=== PATIENT | female | born 1970 | race American Indian/Alaskan Native ===

== ENCOUNTER 2021-09-30 02:05 | Emergency (ER) | payer SELFPAY ==
[2021-09-30] MEDS ORDERED: LACTATED RINGERS 1,000 ML IV ONE (02:46)
--- NOTE | 2021-09-30 02:46 | Event Note ---
Date: 09/30/21 The patient was evaluated in the emergency department for symptoms described in the history of present illness. He/she was evaluated in the context of the global COVID-19 pandemic, which necessitated consideration that the patient might be at risk for infection with the virus that causes COVID-19. Institutional protocols and algorithms that pertain to the evaluation of patients at risk for COVID-19 are in a state of rapid change based on information released by regulatory bodies including the CDC and federal and state organizations. These policies and algorithms were followed during the patient's care in the emergency department. Please note that these policies, procedures and recommendations changed on a rapid basis. EMS documentation not available at time of chart dictation Verbal report received from emergency medical services Medical screening examination note: 51-year-old female presenting to the department today with complaint of muscle cramps after dancing in a hot dance martin. EMS reports soft blood pressure in the field, which improved with lactated Ringer's. Patient currently awake and alert, moving 4 extremities, breathing spontaneously protecting airway, and in no acute distress. Placed patient in room, obtain appropriate laboratory studies, place patient on monitor, obtain EKG. Continue fluid therapy. Detailed history and physical to be performed by oncoming provider.
[2021-09-30 03:15] VITALS: BP 116/62
[2021-09-30 04:24] LABS: Basophils % (Auto) 0.1 % (0.0-1.8); Hematocrit 36.1 % (30.3-42.9); Hemoglobin 11.8 gm/dl (10.1-14.3); Lymphocytes # (Auto) 1.1 K/mm3 (1.2-5.4); Lymphocytes % (Auto) 12.2 % (13.4-35.0); Mean Corpuscular HGB Conc 33 % (30-34); Mean Corpuscular Volume 80 fl (79-97); Monocytes # (Auto) 0.4 K/mm3 (0.0-0.8); Monocytes % (Auto) 4.8 % (0.0-7.3); Platelet Count 216 K/mm3 (140-440); Red Blood Count 4.49 M/mm3 (3.65-5.03); Red Cell Distribution Width 17.7 % (13.2-15.2)
[2021-09-30 04:29] LABS: Alanine Aminotransferase 23 units/L (7-56); Albumin 4.1 g/dL (3.9-5); BUN/Creatinine Ratio 33; Blood Urea Nitrogen 30 mg/dL (7-17); Calcium 9.6 mg/dL (8.4-10.2); Hemolysis Index 7
[2021-09-30] MEDS ORDERED: KETOROLAC 30 MG/1 ML INJ IV ONE (05:05)
--- NOTE | 2021-09-30 05:10 | Emergency Department Report ---
ED General Adult HPI - General Chief complaint: Pain General Stated complaint: DIZZINESS/MUSCLE CRAMPS Source: patient, EMS ( EMS documentation not available at time of chart dictation ), RN notes reviewed Mode of arrival: Stretcher Limitations: No Limitations - History of Present Illness Initial comments: The patient was evaluated in the emergency department for symptoms described in the history of present illness. He/she was evaluated in the context of the global COVID-19 pandemic, which necessitated consideration that the patient might be at risk for infection with the virus that causes COVID-19. Institutional protocols and algorithms that pertain to the evaluation of patients at risk for COVID-19 are in a state of rapid change based on information released by regulatory bodies including the CDC and federal and state organizations. These policies and algorithms were followed during the patient's care in the emergency department. Please note that these policies, procedures and recommendations changed on a rapid basis. Patient is a pleasant and cooperative 51-year-old female who presents to the department with a complaint of muscle cramps, predominantly in her lower extremity, after being inside in a dance martin. She had mild nausea but this is now resolved. She feels somewhat improved after rest and fluids. Denies additional injuries and complaints -: Sudden, days(s) Location: left, right, upper extremity, lower extremity Quality: other (Cramping and aching) Consistency: intermittent Improves with: rest Worsens with: movement - Related Data Previous Rx's Medication Instructions Recorded Last Taken Type Acetaminophen [Non-Aspirin Extra 500 mg PO Q6HR PRN #30 tablet 09/30/21 Unknown Rx Strength] Ibuprofen [Motrin] 600 mg PO Q8H PRN #30 tablet 09/30/21 Unknown Rx Ondansetron [Zofran Odt] 4 mg PO Q8HR PRN #20 tab.rapdis 09/30/21 Unknown Rx Allergies Allergy/AdvReac Type Severity Reaction Status Date / Time No Known Allergies Allergy Verified 09/30/21 03:17 ED Review of Systems ROS: Stated complaint: DIZZINESS/MUSCLE CRAMPS Other details as noted in HPI Constitutional: denies: fever Eyes: denies: eye discharge ENT: denies: epistaxis Respiratory: denies: cough Cardiovascular: denies: chest pain Gastrointestinal: nausea. denies: abdominal pain, vomiting Musculoskeletal: myalgia Neurological: denies: weakness ED Past Medical Hx - Past Medical History Previous Medical History?: Yes Hx Hypertension: Yes - Surgical History Past Surgical History?: Yes Additional Surgical History: Breast Reduction - Social History Smoking Status: Never Smoker Substance Use Type: None - Medications Home Medications: Home Medications Medication Instructions Recorded Confirmed Last Taken Type Acetaminophen [Non-Aspirin Extra 500 mg PO Q6HR PRN #30 tablet 09/30/21 Unknown Rx Strength] Ibuprofen [Motrin] 600 mg PO Q8H PRN #30 tablet 09/30/21 Unknown Rx Ondansetron [Zofran Odt] 4 mg PO Q8HR PRN #20 tab.rapdis 09/30/21 Unknown Rx ED Physical Exam - General Limitations: No Limitations General appearance: alert, in no apparent distress - Head Head exam: Present: atraumatic, normocephalic - Eye Eye exam: Present: normal appearance, EOMI. Absent: nystagmus - ENT ENT exam: Present: normal exam, normal orophraynx, mucous membranes moist, normal external ear exam - Neck Neck exam: Present: normal inspection, full ROM. Absent: tenderness, meningismus - Respiratory Respiratory exam: Present: normal lung sounds bilaterally. Absent: respiratory distress, wheezes, rales, rhonchi, stridor, decreased breath sounds - Cardiovascular Cardiovascular Exam: Present: regular rate, normal rhythm, normal heart sounds. Absent: bradycardia, tachycardia, irregular rhythm, systolic murmur, diastolic murmur, rubs, gallop - GI/Abdominal GI/Abdominal exam: Present: soft. Absent: distended, tenderness, guarding, rebound, rigid, pulsatile mass - Extremities Exam Extremities exam: Present: normal inspection, full ROM, normal capillary refill, other (2+ pulses noted in the bilateral upper and lower extremities. There is no palpable cord. negative Homans sign. Muscular compartments are soft. The pelvis is stable.). Absent: pedal edema, calf tenderness - Back Exam Back exam: Present: normal inspection, full ROM. Absent: tenderness, CVA tenderness (R), CVA tenderness (L), paraspinal tenderness, vertebral tenderness - Neurological Exam Neurological exam: Present: alert, oriented X3, reflexes normal, other (No facial droop. Tongue midline. Extraocular movements intact bilaterally. Facial sensation intact to light touch in V1, V2, V3 distribution bilaterally. 5 and a 5 strength in 4 extremities. Sensation intact to light touch in 4 extremities.). Absent: motor sensory deficit - Psychiatric Psychiatric exam: Present: normal affect, normal mood - Skin Skin exam: Present: warm, dry, intact, normal color. Absent: rash ED Course Vital Signs 09/30/21 02:05 Temperature 98.3 F Pulse Rate 84 Respiratory 18 Rate Blood Pressure 116/62 O2 Sat by Pulse 100 Oximetry ED Medical Decision Making - Lab Data Result diagrams: 09/30/21 03:53 09/30/21 03:53 Vital Signs 09/30/21 02:05 Temperature 98.3 F Pulse Rate 84 Respiratory 18 Rate Blood Pressure 116/62 O2 Sat by Pulse 100 Oximetry Lab Results 09/30/21 09/30/21 09/30/21 Range/Units 03:53 03:53 03:53 WBC 9.0 (4.5-11.0) K/mm3 RBC 4.49 (3.65-5.03) M/mm3 Hgb 11.8 (10.1-14.3) gm/dl Hct 36.1 (30.3-42.9) % MCV 80 (79-97) fl MCH 26 L (28-32) pg MCHC 33 (30-34) % RDW 17.7 H (13.2-15.2) % Plt Count 216 (140-440) K/mm3 Lymph % (Auto) 12.2 L (13.4-35.0) % [place] % (Auto) 4.8 (0.0-7.3) % Eos % (Auto) 0.0 (0.0-4.3) % Baso % (Auto) 0.1 (0.0-1.8) % Lymph # (Auto) 1.1 L (1.2-5.4) K/mm3 [place] # (Auto) 0.4 (0.0-0.8) K/mm3 Eos # (Auto) 0.0 (0.0-0.4) K/mm3 Baso # (Auto) 0.0 (0.0-0.1) K/mm3 Seg Neutrophils % 82.9 H (40.0-70.0) % Seg Neutrophils # 7.5 (1.8-7.7) K/mm3 Sodium 140 (137-145) mmol/L Potassium 3.9 (3.6-5.0) mmol/L Chloride 102.7 (98-107) mmol/L Carbon Dioxide 25 (22-30) mmol/L Anion Gap 16 mmol/L BUN 30 H (7-17) mg/dL Creatinine 0.9 (0.6-1.2) mg/dL Estimated GFR > 60 ml/min BUN/Creatinine Ratio 33 % Glucose 97 (65-100) mg/dL Calcium 9.6 (8.4-10.2) mg/dL Phosphorus 3.90 (2.5-4.5) mg/dL Magnesium 2.00 (1.7-2.3) mg/dL Total Bilirubin 0.20 (0.1-1.2) mg/dL AST 21 (5-40) units/L ALT 23 (7-56) units/L Alkaline Phosphatase 110 (35-129) units/L Total Creatine Kinase 272 H (30-135) units/L Total Protein 7.2 (6.3-8.2) g/dL Albumin 4.1 (3.9-5) g/dL Albumin/Globulin Ratio 1.3 % TSH 0.789 (0.270-4.200) mlU/mL - EKG Data -: EKG Interpreted by Mi EKG shows normal: sinus rhythm Rate: normal - EKG Data 09/30/21 05:08 The EKG is interpreted at 03: 3 0 This is a sinus rhythm, with a rate of 89 bpm. There is a normal axis, normal P wave axis, left ventricular hypertrophy, motion artifact, QTC 205 ms. This is an abnormal EKG. This is not a STEMI - Medical Decision Making Differential diagnosis, including but not limited to: Cramps, electrolyte derangement, dehydration, elevated CK Assessment and plan: 51-year-old female, who was afebrile, with reassuring vital signs, with a benign and unremarkable physical examination, full active and passive range of motion of the upper extremities, soft muscular compartments, and intact neurovascular integrity. Blood pressure and vital signs acceptable and within normal limits at this time. Laboratory studies are essentially unremarkable with exception of elevated BUN to creatinine ratio, which is likely secondary to dehydration. Patient felt improved after fluids and Toradol here in the emergency room. She is observed in this department for hours without clinical decompensation. Alternate ice packs and heat packs, Tylenol Motrin as needed for pain, weightbearing as tolerated, physical activities as tolerated, outpatient follow-up Critical care attestation.: If time is entered above; I have spent that time in minutes in the direct care of this critically ill patient, excluding procedure time. ED Disposition Clinical Impression: Muscle cramps Disposition: 01 HOME / SELF CARE / HOMELESS Is pt being admited?: No Does the pt Need Aspirin: No Condition: Good Instructions: Muscle Cramps and Spasms Additional Instructions: Please drink plenty of fluids. Alternate ice packs and heat packs as needed for physical pain. Take the pain medication and nausea medications as needed and directed. Avoid heavy lifting and strenuous physical activities. Follow-up with your primary care doctor within the next week. Please return to the emergency room right away with new pain, worsened pain, migration of pain, projectile vomiting, change in mental status, confusion, inability tolerate liquid feeds, new, worsened or different symptoms not present on the initial emergency room evaluation Referrals: [facility] [Provider Group] - 3-5 Days Forms: Work/School Release Form(ED)
--- NOTE | 2021-09-30 15:20 | Electrocardiograph Report ---
[facility] Test Date: 2021-09-30 Test Time: 03:26:53 Pat Name: MOHIT PUGH Department: Room: Gender: F Assurance Manager Insurance: NURSE : [id number] Requested By: WALKER REYES Order Number: [id number] Reading MD: Nissa Michel Measurements Intervals [place] Rate: 89 P: 10 CO: 205 QRS: 15 QRSD: 70 T: -61 QT: 346 QTc: 421 Interpretive Statements Sinus rhythm Borderline prolonged CO interval Borderline T abnormalities, diffuse leads No previous ECG available for comparison Electronically Signed On 09-30-2021 15:20:22 EDT by Nissa Michel
== END 2021-09-30 05:46 | disposition home or self-care (01) ==
LOC: ED 02:05
DX: R25.2 Cramp and spasm (principal); I10 Essential (primary) hypertension; Z98.890 Other specified postprocedural states
CPT/HCPCS: 36415; 80053; 82550; 83735; 84100; 84443; 85025; 93005; 96361; 96374; 99284; J1885; J7120